=== PATIENT | female | born 1975 | race Caucasian/White ===

== ENCOUNTER 2024-06-27 20:49 | Emergency (ER) | payer BC ==
[~2024-06-27] VITALS: Ht 165.1 cm; Wt 84.0 kg
[2024-06-27 21:34] VITALS: TEMP 36.8; O2SAT 99
[2024-06-27] MEDS ORDERED: SULF1TAB48 MT (22:58)
[2024-06-27] MEDS ORDERED: BO1 TP (22:58)
[2024-06-27 23:07] VITALS: BP 133/87; PULSE 69; RESP 14; O2SAT 100
== END 2024-06-27 23:17 | disposition home or self-care (01) ==
LOC: ER 20:49
DX: L03.116 Cellulitis of left lower limb (principal); I10 Essential (primary) hypertension; Z79.899 Other long term (current) drug therapy; Z98.890 Other specified postprocedural states; W57.XXXA Bitten or stung by nonvenomous insect and other nonvenomous arthropods, initial encounter; Y93.89 Activity, other specified; Y92.89 Other specified places as the place of occurrence of the external cause; Y99.8 Other external cause status
CPT/HCPCS: 99283